=== PATIENT | male | born 1975 | race Caucasian/White ===

== ENCOUNTER 2018-09-29 14:31 | Emergency (ER) | payer BC ==
--- NOTE | 2018-09-29 14:52 | Emergency Department Record ---
History of Present Illness - General Chief Complaint: Syncope Stated Complaint: PASSED WHILE SITTING Time Seen by Provider: 09/29/18 14:51 Source: Patient, Family (significant other) Mode of Arrival: Ambulatory Limitations: No limitations - History of Present Illness Initial Comments: Pt with significant other drove to [employer] [place] [employer] and while sitting eating his salad "started to lean to the side". SO states he "had his hand in his salad and was not responding normally. She called out for someone to call 911 and he came to and responded to her. Pt recalls hearing her call for help. There was no fall to the floor, no LOC, no seizure, no incont of urine, no tongue biting. Pt denies feeling poorly prior, no POTTER, dizziness, CP. No recent illness, travel, new meds, no OTC meds, no recent cold or viral illness. 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 Active without hx of passing out. Non smoke with rare social alcohol and no street drug use. MD Complaint: Almost passed out Onset/Timin -: Minutes(s) Prodromal Symptoms: None Current Symptoms: None - Christian Coma Scale Eye Response: (4) Open spontaneously Motor Response: (6) Obeys commands Verbal Response: (5) Oriented Christian Total: 15 - Related Data Home Medications Medication Instructions Recorded Confirmed Last Taken No Home Med [NO HOME MEDS] 09/29/18 09/29/18 Unknown Allergies Allergy/AdvReac Type Severity Reaction Status Date / Time No Known Drug Allergies Allergy Verified 09/29/18 14:56 Travel Screening - Travel/Exposure Within Last 30 Days Have you traveled within the last 30 days?: No - Travel/Exposure Within Last Year Have you traveled outside the [place] in the last year?: No - Additonal Travel Details Have you been exposed to anyone with a communicable illness?: No - Travel Symptoms Symptom Screening: None Review of Systems Constitutional: Denies: Chills, Fever, Weight change Eyes: Denies: Eye discharge, Eye pain, Vision change ENT: Denies: Congestion, Ear pain Respiratory: Denies: Cough, Dyspnea, Wheezes Cardiovascular: Denies: Arrhythmia, Chest pain, Palpitations Endocrine: Denies: Fatigue, Polydipsia, Polyuria Gastrointestinal: Denies: Abdominal pain, Diarrhea, Vomiting Genitourinary: Denies: Discharge, Frequency, Hematuria Musculoskeletal: Denies: Arthralgia, Back pain Skin: Denies: Bruising, Rash Neurological: Denies: Abnormal gait, Headache, Numbness, Seizure, Weakness Psychiatric: Denies: Anxiety, Suicidal thoughts Hematological/Lymphatic: Denies: Anemia Past Medical History - SOCIAL HISTORY Smoking Status: Never smoker Alcohol Use: Occasional Drug Use: None - RESPIRATORY Hx Respiratory Disorders: No - CARDIOVASCULAR Hx Cardio Disorders: No - NEURO Hx Neuro Disorders: No - GI Hx GI Disorders: No - Hx Genitourinary Disorders: No - ENDOCRINE Hx Endocrine Disorders: No - MUSCULOSKELETAL Hx Musculoskeletal Disorders: No - PSYCH Hx Psych Problems: No - HEMATOLOGY/ONCOLOGY Hx Hematology/Oncology Disorders: No Family Medical History Any Significant Family History?: No Physical Exam - General General Appearance: Alert, Oriented x3, Cooperative, No acute distress Limitations: No limitations - Head Head exam: Atraumatic - Eye Eye exam: Normal appearance, PERRL, EOMI. negative: Nystagmus - ENT ENT exam: Normal exam, Mucous membranes moist, Normal external ear exam, Normal orophraynx, TM's normal bilaterally - Neck Neck exam: Normal inspection. negative: Tenderness - Respiratory Respiratory exam: Normal lung sounds bilaterally. negative: Respiratory distress, Wheezes - Cardiovascular Cardiovascular Exam: Normal rhythm, Normal heart sounds, Bradycardia Peripheral Pulses: 2+: Radial (R), Radial (L) - GI/Abdominal GI/Abdominal exam: Soft, Normal bowel sounds. negative: Guarding, Tenderness - Rectal Rectal exam: Deferred - exam: Deferred - Extremities Extremities exam: Normal inspection. negative: Calf tenderness - Back Back exam: Reports: Normal inspection. Denies: Vertebral tenderness - Neurological Neurological exam: Alert, CN II-XII intact, Normal gait, Oriented X3. negative : Motor sensory deficit - Psychiatric Psychiatric exam: Normal affect, Normal mood. negative: Anxious - Skin Skin exam: Normal color. negative: Rash Course Vital Signs 09/29/18 14:34 Temperature 98.0 F Pulse Rate 57 L Respiratory 20 Rate Blood Pressure 156/96 Pulse Ox 98 - Reevaluation(s) Reevaluation #1: 09/29/18 16:25 Dr. Yoo discussed case and plan. Will lace a Holter in ED and schedule echo. Pt and SO aware, NO DRIVING or work until complete eval. Agree with plan. Procedures - EKG Initial Date: 09/29/18 Time: 15:04 EKG: Abnormal EKG (Sinus Bradicardia at 51) Medical Decision Making - Lab Data Result diagrams: 09/29/18 15:00 09/29/18 15:00 Disposition Disposition: Discharge Clinical Impression: Near syncope, Bradycardia Disposition: Home, Self-Care Condition: (2) Stable Instructions: Near Syncope (ED), Bradycardia (ED) Additional Instructions: DO NOT DRIVE until release by physician. Risk of accident causing injury or . DO NOT WORK with heavy equipment or machinery until cleared by physician. Referrals: JANAE YOO [] - Forms: Patient Portal Access Quality - Blood Pressure Screening Does Patient Have Any of the Following: No Blood Pressure Classification: Hypertensive Reading Systolic Measurement: 156 Diastolic Measurement: 96
[2018-09-29] MEDS ORDERED: 0.9 % SODIUM CHLORIDE 1000ML 1,000 ML IV PRN (15:02)
[2018-09-29 15:10] LABS: BASO % 0.8 % (0-6); EOS % 3.5 % (0-6); GRAN % 52.3 % (47-80); HEMATOCRIT 42.7 % (42.0-52.0); HEMOGLOBIN 14.2 gm/dl (14.0-18.0); LYMPH % 33.1 % (16-45); MEAN CELL VOLUME 91.6 fl (81-97); MEAN CORPUSCULAR HEMOGLOBIN 30.5 pg (27-33); MEAN CORPUSCULAR HGB CONC 33.3 g/dl (32-36); MEAN PLATELET VOLUME 11.8 fl (7.4-10.4); MONO % 10.3 % (0-9); PLATELET COUNT 177 K/uL (130-400); RED BLOOD COUNT 4.66 M/uL (4.40-5.70); RED CELL DISTRIBUTION WIDTH 12.5 % (11.5-14.5); WHITE BLOOD COUNT W/O DIFF 5.1 K/uL (4.2-12.2)
[2018-09-29 15:18] LABS: BLOOD UREA NITROGEN 11 mg/dL (6-20); CREATININE 0.8 mg/dL (0.7-1.2); EST GLOMERULAR FILTRATION RATE > 60 mL/min
[2018-09-29 15:21] LABS: GLUCOSE,RANDOM 91 mg/dL (74-109)
[2018-09-29 15:35] LABS: THYROID STIMULATING HORMONE 2.73 uIU/mL (0.270-4.20)
--- NOTE | 2018-10-01 08:01 | RADIOLOGY REPORT ---
EXAM: CHEST, TWO VIEWS HISTORY: SYNCOPE, BRADYCARDIA. EVALUATE FOR CARDIOPULMONARY ABNORMALITIES. TECHNIQUE: Two views of the chest were obtained. Comparison: None. FINDINGS: The cardiomediastinal silhouette is within normal limits. The lungs are clear. No pleural effusion or pneumothorax. The pulmonary vasculature is normal. The bony structures are unremarkable. IMPRESSION: NO ACUTE CARDIOPULMONARY ABNORMALITIES IDENTIFIED. JOB NUMBER: [id number]
== END 2018-09-29 17:33 | disposition home or self-care (01) ==
LOC: ER 14:31
DX: R00.1 Bradycardia, unspecified (principal); R55 Syncope and collapse
CPT/HCPCS: 71046; 80048; 84443; 84484; 85025; 85379; 93005; 93010; 93225; 93226; 99284